=== PATIENT | male | born 1985 | race African-American/Black ===

== ENCOUNTER 2021-12-05 10:08 | Emergency (ER) | payer SELFPAY ==
[2021-12-05 10:11] VITALS: BP 134/76; PULSE 80; RESP 15; TEMP 37.1; O2SAT 97; BMI 25.1
--- NOTE | 2021-12-05 10:14 | ED_ITS ---
HPI - Fall General: Chief Complaint: Altered Mental Status Stated Complaint: AMS S/P FALL WITH +LOC Time Seen by Provider: 12/05/21 10:14 Limitations: altered mental status History of Present Illness: Mr. Pryor is a 35-year-old gentleman without significant past medical history presents the emergency department due to fall with altered mental status. He fell from the top bunk in halfway under somewhat unclear circumstances. He denies specific provoking factors however does not recall specific events. Onset (ago): minute(s) Fall from: out of bed (Top bunk) Fall witnessed: no Place fall occurred: other Loss of consciousness: Unsure Prolonged down time: no Review of Systems General: Reports: ROS unobtainable due to mental status PFS ED PFSH: Medical History (Updated 12/10/21 @ 20:21 by Asher Escobar MD) No significant past medical history Surgical History (Updated 12/10/21 @ 20:21 by Asher Escobar MD) No significant past surgical history Family History (Updated 12/10/21 @ 20:21 by Asher Escobar MD) Denies family history of Bleeding disorder Physical Exam Const: GENERAL APPEARANCE: cooperative, well developed and lethargic ORIENTATION/CONSCIOUSNESS: Yes lethargic HENMT: COMMON NORMALS: normocephalic HEAD & SCALP: normocephalic THROAT: posterior oropharynx normal OTHER: Mild amount of blood in mouth of unclear source, no active significant hemorrhage. No septal hematoma, no arrieta signs or raccoon eyes, no otorhinorrhea. Jaw alignment normal. Eye: COMMON NORMALS: conjunctivae normal CONJUNCTIVA: Yes conjunctivae normal SCLERA: sclerae normal Neck/C-Spine: GENERAL: Yes trachea midline CERVICAL SPINE: Yes collar present Resp: EFFORT & INSPECTION: Yes able to speak in complete sentences Cardio: COMMON NORMALS: regular rate and regular rhythm RATE: regular rate RHYTHM: regular rhythm GI: COMMON NORMALS: Soft to palpation PALPATION: Yes Soft to palpation, Yes Tenderness to palpation present (GI), No Guarding due to palpation present (GI) and No Rigid due to palpation PERCUSSION: normal to percussion Extremity: NARRATIVE EXTREMITY EXAM: Mild amount of bleeding from right great toe GENERAL: Yes normal exam except as noted and No edema Neuro: COMMON NORMALS: moves all extremities SENSORIUM/ORIENTATION: Yes Orientation impaired and Yes lethargic Course ED course: - Patient was seen and evaluated by me at bedside - Patient placed on cardiac monitors, IV access obtained - Initial evaluation notable for as above, altered mental status limits history though patient will respond to some questions. Head to toe exam performed - Labs notable for no leukocytosis, normal hemoglobin. Metabolic panel with evidence of likely dehydration though no recent comparison for creatinine. IV fluids given. - Imaging notable for no acute bony or internal injury. - Upon serial reexamination after treatment the patient was improved - Based on patient history, evaluation, and testing as interpreted the most likely cause of the patient's condition is fall of uncertain etiology with altered mental status now normalized. Patient ambulatory without difficulty. If seizure this would be a first-time seizure and does not require antiepileptic medication. - The results of ED evaluation were given to the patient including prescriptions and/or symptomatic cares (if applicable) including appropriate and responsible use, followup plan, and return precautions. The patient verbalized understanding and felt safe for discharge. - Patient discharged in law enforcement custody in satisfactory condition. Note: Click bubbles or prepopulated ewing in note writing are used for assistance with data collection and billing and are inherently more limited than narrative and other text portions of this note. Please use narrative for additional clinical history and defer to narrative/free test for any case of contradictory information. If information appears in only free text or click bubble it should be considered present or absent as reported. Please contact note group underwriter for clarifications of clinical information or contradictory information. MDM is a brief summary, contradictory or erroneous seeming information should be clarified and full note should be reviewed. Vital Signs: Vital signs: Vital Signs Temperature 98.6 F 12/05/21 10:21 Pulse Rate 67 12/05/21 10:21 Respiratory Rate 16 12/05/21 10:21 Blood Pressure 116/66 12/05/21 10:21 Pulse Oximetry 99 12/05/21 10:21 MDM - Fall Medical Decision Making 36-year-old gentleman presenting with altered mental status after fall from halfway. No acute traumatic injury identified end mental status improved through out ED evaluation. Satisfactory for discharge and outpatient management. Medical Records I reviewed the patient's medical records. Lab Data I reviewed the patient's lab results. : 12/05/21 10:30 12/05/21 10:30 Radiology Impressions Cervical Spine CT 12/05/21 10:19 IMPRESSION: No acute findings. Chest/Abdomen/Pelvis CT 12/05/21 10:19 IMPRESSION: No acute abnormality is seen in the chest. IMPRESSION: No acute findings. Face CT 12/05/21 10:19 IMPRESSION: No acute findings. Foot X-Ray 12/05/21 10:19 IMPRESSION: No acute findings. Head CT 12/05/21 10:19 IMPRESSION: No acute intracranial abnormality. Laboratory Results WBC 4.9 10^3/uL (4.0-10.0) 12/05/21 10:30 RBC 4.13 10^6/uL (4.1-5.3) 12/05/21 10:30 Hgb 12.2 g/dL (11.7-16.6) 12/05/21 10:30 Hct 37.1 % (42.0-52.0) L 12/05/21 10:30 MCV 89.8 fl (80-94) 12/05/21 10:30 MCH 29.5 pg (28.0-34.0) 12/05/21 10:30 MCHC 32.9 g/dL (30.0-36.0) 12/05/21 10:30 RDW 12.3 % (12.1-15.1) 12/05/21 10:30 Plt Count 235 10^3/cmm (130-400) 12/05/21 10:30 MPV 9.6 fL (7.4-10.4) 12/05/21 10:30 Neut % (Auto) 49.7 % 12/05/21 10:30 Lymph % (Auto) 34.6 % 12/05/21 10:30 Shackelford % (Auto) 13.1 % 12/05/21 10:30 Eos % (Auto) 2.2 % 12/05/21 10:30 Baso % (Auto) 0.2 % 12/05/21 10:30 Neut # (Auto) 2.43 10^3/uL (1.8-7.7) 12/05/21 10:30 Lymph # (Auto) 1.7 10^3/uL (0.8-4.8) 12/05/21 10:30 Shackelford # (Auto) 0.6 10^3/uL (0.2-0.9) 12/05/21 10:30 Eos # (Auto) 0.1 10^3/uL (0.0-0.8) 12/05/21 10:30 Baso # (Auto) 0.0 10^3/uL (0.0-0.1) 12/05/21 10:30 Nucleated RBC % (auto) 0 % 12/05/21 10:30 Nucleated RBCs # 0.0 /100WBC 12/05/21 10:30 Sodium 139 mmol/L (136-145) 12/05/21 10:30 Potassium 3.6 mmol/L (3.5-5.1) 12/05/21 10:30 Chloride 105 mmol/L (98-107) 12/05/21 10:30 Carbon Dioxide 25 mmol/L (22-29) 12/05/21 10:30 Anion Gap 12.6 (5-19) 12/05/21 10:30 BUN 5 mg/dL (6-20) L 12/05/21 10:30 Creatinine 1.3 mg/dL (0.7-1.2) H 12/05/21 10:30 GFR Calculation 76.0 mL/min (90-130) L 12/05/21 10:30 Glucose 98 mg/dL (65-115) 12/05/21 10:30 POC Glucose 78 mg/dL (70-110) 12/05/21 10:27 Calculated Osmolality 285 mOsm/kg (285-295) 12/05/21 10:30 Calcium 7.9 mg/dL (8.5-10.5) L 12/05/21 10:30 Total Bilirubin 1.0 mg/dL (0.15-1.2) 12/05/21 10:30 AST 25 U/L (0-40) 12/05/21 10:30 ALT 30 U/L (0-41) 12/05/21 10:30 Alkaline Phosphatase 59 IU/L (40-130) 12/05/21 10:30 Total Protein 6.3 g/dL (6.6-8.7) L 12/05/21 10:30 Albumin 4.0 g/dL (3.5-5.2) 12/05/21 10:30 Globulin 2.3 g/dL (1.3-4.6) 12/05/21 10:30 Discharge Plan Discharge Patient Disposition: Home Clinical Impression: Syncope, Altered mental status, Head injury, Dehydration Condition: Stable Discharge Orders: Discharge ED (Routine); Ordered 12/05/21 Ordered By: Asher Escobar Discharge Diet: Usual diet Discharge Activity: Increase activity as tolerated Patient Instructions: Dehydration (ED), Syncope (ED), Concussion (ED), Head Injury (ED) Activity Restrictions/Additional Instructions: Thank you for visiting the emergency department. You were seen and evaluated for fall with head strike. The exact cause of your symptoms is unclear, he you do not have evidence of internal injury related to your fall. It is very possible that symptoms are related to concussion. You were found to have mild dehydration. Please ensure that you are staying hydrated. Please have repeat laboratory studies to check creatinine in 1 week. Return to the emergency department for confusion, seizures, changes in level of responsiveness, or anything else that you are concerned about and feel needs emergency department evaluation. 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
--- NOTE | 2021-12-05 10:19 | CTR_ITS ---
PROCEDURE INFORMATION: Exam: CT Maxillofacial Without Contrast Exam date and time: 12/05/2021 11:09 AM Age: 35 years old Clinical indication: Injury or trauma; Fall; Blunt trauma (contusions or hematomas); Forehead; Additional info: Fall, AMS TECHNIQUE: Imaging protocol: Computed tomography images of the face without contrast. Radiation optimization: All CT scans at this facility use at least one of these dose optimization techniques: automated exposure control; mA and/or kV adjustment per patient size (includes targeted exams where dose is matched to clinical indication); or iterative reconstruction. COMPARISON: CT head wo con* [id number] 12/05/2021 11:02 AM RADIATION DOSE METRICS: Total DLP (mGy-cm): 754.45 FINDINGS: Orbital cavities: Orbits are normal. Globes are unremarkable. Bones/joints: No acute fracture. Paranasal sinuses: Normal. No air-fluid levels. Soft tissues: Unremarkable. CT/CT facial bones wo con* [id number] IMPRESSION: No acute findings.
--- NOTE | 2021-12-05 10:19 | CTR_ITS ---
PROCEDURE INFORMATION: Exam: CT Cervical Spine Without Contrast Exam date and time: 12/05/2021 11:04 AM Age: 35 years old Clinical indication: Injury or trauma; Fall; Blunt trauma; Additional info: Fall, AMS TECHNIQUE: Imaging protocol: Computed tomography images of the cervical spine without contrast. Radiation optimization: All CT scans at this facility use at least one of these dose optimization techniques: automated exposure control; mA and/or kV adjustment per patient size (includes targeted exams where dose is matched to clinical indication); or iterative reconstruction. COMPARISON: CT head wo con* [id number] 12/05/2021 11:02 AM RADIATION DOSE METRICS: Total DLP (mGy-cm): 796.57 FINDINGS: Bones/joints: No acute fracture. Normal alignment. Discs/Spinal canal/Neural foramina: No significant disc protrusion. No severe spinal canal stenosis. No significant neural foraminal narrowing. Lungs: Lung apices are normal. Soft tissues: Unremarkable. CT/CT cervical spin wo con* [id number] IMPRESSION: No acute findings.
--- NOTE | 2021-12-05 10:19 | ECG_ITS ---
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 Measurements Intervals [place] Rate: 66 P: 75 [place]: 167 QRS: 82 QRSD: 91 T: 69 QT: 352 QTc: 371 Interpretive Statements SINUS RHYTHM WITH SINUS ARRHYTHMIA No previous ECG available for comparison Electronically Signed On 12-06-2021 8:11:08 CDT by Kiran Ruiz M.D. [email or web address]
--- NOTE | 2021-12-05 10:19 | XRR_ITS ---
PROCEDURE INFORMATION: Exam: XR Right Foot Exam date and time: 12/05/2021 10:29 AM Age: 35 years old Clinical indication: Injury or trauma; Fall; Blunt trauma; Foot; Right; Additional info: Fall, great toe bleeding TECHNIQUE: Imaging protocol: XR Right foot. Views: 3 or more views. COMPARISON: No relevant prior studies available. FINDINGS: Bones/joints: Negative for acute bony abnormality Soft tissues: Normal. XR/XR foot RT min 3V* [id number] IMPRESSION: No acute findings.
--- NOTE | 2021-12-05 10:19 | CTR_ITS ---
PROCEDURE INFORMATION: Exam: CT Chest With Contrast; Diagnostic Exam date and time: 12/05/2021 11:12 AM Age: 35 years old Clinical indication: Injury or trauma; Fall; Generalized; Blunt trauma (contusions or hematomas); Prior surgery; Surgery type: Appy; Additional info: Fall, AMS TECHNIQUE: Imaging protocol: Diagnostic computed tomography of the chest with contrast. Radiation optimization: All CT scans at this facility use at least one of these dose optimization techniques: automated exposure control; mA and/or kV adjustment per patient size (includes targeted exams where dose is matched to clinical indication); or iterative reconstruction. Contrast material: OMNI 300; Contrast volume: 95 ml; Contrast route: INTRAVENOUS (IV); COMPARISON: CT cervical spin wo con* [id number] 12/05/2021 11:04 AM RADIATION DOSE METRICS: Total DLP (mGy-cm): 1944.12 FINDINGS: Lungs: Unremarkable. No consolidation. No masses. Pleural spaces: Unremarkable. No pneumothorax. No pleural effusion. Heart: Unremarkable. No cardiomegaly. No pericardial effusion. Lymph nodes: Benign calcified lymph nodes are present in the left pulmonary hilum. No significant adenopathy. Vasculature: Unremarkable. No aortic aneurysm. Bones/joints: Unremarkable. No acute fracture. Soft tissues: Unremarkable. PROCEDURE INFORMATION: Exam: CT Abdomen And Pelvis With Contrast Exam date and time: 12/05/2021 11:12 AM Age: 35 years old Clinical indication: Injury or trauma; Fall; Generalized; Blunt trauma (contusions or hematomas); Prior surgery; Surgery type: Appy; Additional info: Fall, AMS TECHNIQUE: Imaging protocol: Computed tomography of the abdomen and pelvis with contrast. Radiation optimization: All CT scans at this facility use at least one of these dose optimization techniques: automated exposure control; mA and/or kV adjustment per patient size (includes targeted exams where dose is matched to clinical indication); or iterative reconstruction. Contrast material: OMNI 300; Contrast volume: 95 ml; Contrast route: INTRAVENOUS (IV); COMPARISON: CT cervical spin wo con* [id number] 12/05/2021 11:04 AM RADIATION DOSE METRICS: Total DLP (mGy-cm): 1944.12 FINDINGS: Liver: Normal. No mass. Gallbladder and bile ducts: Normal. No calcified stones. No ductal dilation. Pancreas: Normal. No ductal dilation. Spleen: Normal. No splenomegaly. Adrenal glands: Normal. No mass. Kidneys and ureters: Normal. No hydronephrosis. Stomach and bowel: Unremarkable. No obstruction. No mucosal thickening. Appendix: No evidence of appendicitis. Intraperitoneal space: Unremarkable. No free air. No significant fluid collection. Vasculature: Unremarkable. No abdominal aortic aneurysm. Lymph nodes: Unremarkable. No enlarged lymph nodes. Urinary bladder: Unremarkable as visualized. Reproductive: Unremarkable as visualized. Bones/joints: Unremarkable. No acute fracture. Soft tissues: Unremarkable. CT/CT chest abd pel w con* IMPRESSION: No acute abnormality is seen in the chest. IMPRESSION: No acute findings.
--- NOTE | 2021-12-05 10:19 | CTR_ITS ---
PROCEDURE INFORMATION: Exam: CT Head Without Contrast Exam date and time: 12/05/2021 11:02 AM Age: 35 years old Clinical indication: Injury or trauma; Fall; Blunt trauma (contusions or hematomas); With loss of consciousness; Additional info: Fall, AMS TECHNIQUE: Imaging protocol: Computed tomography of the head without contrast. Radiation optimization: All CT scans at this facility use at least one of these dose optimization techniques: automated exposure control; mA and/or kV adjustment per patient size (includes targeted exams where dose is matched to clinical indication); or iterative reconstruction. COMPARISON: No relevant prior studies available. RADIATION DOSE METRICS: Total DLP (mGy-cm): 981.44 FINDINGS: Brain: Normal. No hemorrhage. Unremarkable white matter. No mass effect. Cerebral ventricles: No ventriculomegaly. Paranasal sinuses: Visualized sinuses are unremarkable. No fluid levels. Mastoid air cells: Visualized mastoid air cells are well aerated. Bones/joints: Unremarkable. No acute fracture. Soft tissues: Unremarkable. CT/CT head wo con* [id number] IMPRESSION: No acute intracranial abnormality.
[2021-12-05 10:21] VITALS: BP 116/66; PULSE 67; RESP 16; TEMP 37; O2SAT 99
[2021-12-05 10:30] LABS: Glucose Point of Care 78 mg/dL (70-110)
[2021-12-05 10:39] LABS: Basophils % 0.2 %; Eosinophils # 0.1 10^3/uL (0.0-0.8); Eosinophils % 2.2 %; Hematocrit 37.1 % (42.0-52.0); Hemoglobin 12.2 g/dL (11.7-16.6); Lymphocytes # 1.7 10^3/uL (0.8-4.8); Lymphocytes % 34.6 %; Mean Corpuscular HGB Conc 32.9 g/dL (30.0-36.0); Mean Corpuscular Hemoglobin 29.5 pg (28.0-34.0); Mean Corpuscular Volume 89.8 fl (80-94); Mean Platelet Volume 9.6 fL (7.4-10.4); Monocytes # 0.6 10^3/uL (0.2-0.9); Monocytes % 13.1 %; Neutrophils # 2.43 10^3/uL (1.8-7.7); Neutrophils % 49.7 %; Nucleated Red Blood Cells % 0 %; Platelet Count 235 10^3/cmm (130-400); Red Blood Count 4.13 10^6/uL (4.1-5.3); Red Cell Distribution Width 12.3 % (12.1-15.1); White Blood Count 4.9 10^3/uL (4.0-10.0)
[2021-12-05 10:59] LABS: Alanine Aminotransferase 30 U/L (0-41); Alkaline Phosphatase 59 IU/L (40-130); Anion Gap 12.6 (5-19); Aspartate Amino Transferase 25 U/L (0-40); Blood Urea Nitrogen 5 mg/dL (6-20); Calcium 7.9 mg/dL (8.5-10.5); Carbon Dioxide 25 mmol/L (22-29); Chloride 105 mmol/L (98-107); Globulin 2.3 g/dL (1.3-4.6); Glucose 98 mg/dL (65-115); Osmolality Calculated 285 mOsm/kg (285-295); Potassium 3.6 mmol/L (3.5-5.1); Sodium 139 mmol/L (136-145); Total Protein 6.3 g/dL (6.6-8.7)
[2021-12-05] MEDS: iohexol 300 mg/mL 100 mL Btl IV (11:14)
[2021-12-05] MEDS: tetanus-dipt-pertussis 0.5 mL SDV IM (11:23)
[2021-12-05] MEDS: sodium chloride 0.9% 1,000 ML 999 ML IV (12:39)
== END 2021-12-05 14:45 | disposition home or self-care (01) ==
PROVIDERS: Emergency Provider Emergency Medicine
DX: S09.90XA Unspecified injury of head, initial encounter (principal); W06.XXXA Fall from bed, initial encounter; R55 Syncope and collapse; R41.82 Altered mental status, unspecified; E86.0 Dehydration; Z23 Encounter for immunization
CPT/HCPCS: 36416; 70450; 70486; 71260; 72125; 73630; 74177; 80053; 82962; 85025; 90471; 90715; 93005; 99283; J7030; Q9967